=== PATIENT | male | born 2000 | race Hispanic/Latino ===

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

== ENCOUNTER 2021-04-21 16:41 | Emergency (ER) | payer OTHER, SELFPAY ==
[~2021-04-21 16:41] MED LIST: ISOVUE-370 76%-LOCM 1 ML ONE
[2021-04-21] MEDS ORDERED: Acetaminophen 500 MG TAB ONE (18:30)
== END 2021-04-21 18:37 | disposition home or self-care (01) ==
LOC: ERS 16:41
DX: S30.1XXA Contusion of abdominal wall, initial encounter (principal); V80.010A Animal-rider injured by fall from or being thrown from horse in noncollision accident, initial encounter
CPT/HCPCS: 72131; 74177; Q9966